=== PATIENT | female | born 2005 | race Caucasian/White ===

== ENCOUNTER 2025-10-31 01:23 | Emergency (ER) | payer OTHER, BC ==
[~2025-10-31] VITALS: Ht 170.2 cm; Wt 82.4 kg
[2025-10-31] MEDS ORDERED: LAMOTRIGINE100 MG PO (01:33)
[2025-10-31] MEDS ORDERED: DESVENLAFAXINE100 M3 PO (01:34)
[2025-10-31] MEDS ORDERED: LIDOCAINE 2% VISCOUS 6 ML SYR TOP ONE (01:45)
[2025-10-31 02:30] LABS: BASOPHILS 0.7 % (0.1-1.2); EOSINOPHILS 0.7 % (0.7-5.8); LYMPHOCYTES 21.9 % (19.3-51.7); MCH 29.0 PG (25.6-32.2); MCHC 33.7 g/dL (32.2-35.5); MCV 85.8 fL (79.4-94.8); MONOCYTES 6.6 % (4.7-12.5); NEUTROPHILS 69.9 % (34.0-71.1); RBC 4.80 M/uL (3.93-5.22)
[2025-10-31 02:35] LABS: ALCOHOL, MEDICAL <3 mg/dL (<3); ALT (SGPT) 17 U/L (14-59); AST (SGOT) 12 U/L (15-37); GLOMERULAR FILTRATION RATE,EST 101 mL/min (>60); PROTEIN, TOTAL 8.4 g/dL (6.4-8.2); UREA NITROGEN 13 mg/dL (7-18)
[2025-10-31 03:15] LABS: ABO A; ANTIBODY SCREEN NEGATIVE; RH POSITIVE
[2025-10-31 04:11] LABS: BLOOD/HGB, URINE LARGE (Negative); KETONE, URINE >=80 (Negative); LEUK ESTERASE, URINE NEGATIVE (negative); NITRITE, URINE NEGATIVE (negative)
[2025-10-31 04:17] LABS: EPITHELIAL CELLS, URINE SQUAMOUS 2+ /lpf (0-1+)
[2025-10-31 04:18] LABS: CRYSTALS, URINE NONE SEEN (0-1+)
[2025-10-31 04:19] LABS: BACTERIA, URINE 2+ /hpf (negative); CASTS, URINE NONE SEEN \\lpf; REFLEX CULTURE, URINE No (No)
[2025-10-31 04:26] LABS: AMPHETAMINES, URINE NEGATIVE (NEGATIVE); BARBITURATES, URINE NEGATIVE (NEGATIVE); BENZODIAZEPINE, URINE NEGATIVE (NEGATIVE); CANNABINOID, URINE NEGATIVE (NEGATIVE); COCAINE, URINE NEGATIVE (NEGATIVE); ECSTASY, URINE NEGATIVE (NEGATIVE); FENTANYL, URINE NEGATIVE (NEGATIVE); METHADONE, URINE NEGATIVE (NEGATIVE); OPIATES, URINE NEGATIVE (NEGATIVE); OXYCODONE, URINE NEGATIVE (NEGATIVE); PHENCYCLIDINE, URINE NEGATIVE (NEGATIVE)
== END 2025-10-31 05:10 | disposition home or self-care (01) ==
LOC: ED 01:23
PROVIDERS: Internal Medicine
DX: S16.1XXA Strain of muscle, fascia and tendon at neck level, initial encounter (principal); V69.9XXA Occupant (driver) (passenger) of heavy transport vehicle injured in unspecified traffic accident, initial encounter
CPT/HCPCS: 36415; 51702; 70450; 71250; 72125; 74176; 80053; 80307; 81001; 82550; 83690; 84703; 85025; 86850; 86900; 86901; 99284-25; G0480